=== PATIENT | female | born 1980 | race Hispanic/Latino ===

== ENCOUNTER → 2018-03-29 | Day surgery (SDC) | payer OTHER ==
[2018-03-27 12:13] LABS: BASOPHILS % 0.4 % (0.0-1.0); EOSINOPHILS # (AUTO) 0.1 (0.0-0.4); EOSINOPHILS % 1.4 % (0.0-6.0); HEMATOCRIT 33.1 % (34.2-44.1); HEMOGLOBIN 10.5 g/dL (12.0-16.0); LYMPHOCYTES % 21.8 % (18.0-39.1); MEAN CORPUSCULAR HEMOGLOBIN 25.9 pg (28-32); MEAN CORPUSCULAR HGB CONC 31.7 g/dL (31-35); MEAN CORPUSCULAR VOLUME 81.5 fL (81-99); MONOCYTES # (AUTO) 0.6 (0.2-0.8); MONOCYTES % 6.8 % (4.4-11.3); NEUTROPHILS # (AUTO) 6.4 (2.1-6.9); PLATELET COUNT 636 x10e3/uL (140-360); RED BLOOD COUNT 4.06 x10e6/uL (3.6-5.1); RED CELL DISTRIBUTION WIDTH 14.5 % (11.7-14.4)
[2018-03-27 12:48] LABS: ANION GAP 15.3 mmol/L (8-16); BLOOD UREA NITROGEN 9 mg/dL (7-26); BUN/CREATININE RATIO 12 (6-25); CALCIUM 9.8 mg/dL (8.4-10.2); CARBON DIOXIDE 24 mmol/L (22-29); CHLORIDE 99 mmol/L (98-107); CREATININE, SERUM 0.73 mg/dL (0.57-1.11); EST GLOMERULAR FILTRATION RATE > 60 ML/MIN (60-); GLUCOSE 89 mg/dL (74-118); POTASSIUM 4.3 mmol/L (3.5-5.1); SODIUM 134 mmol/L (136-145)
[~2018-03-29] MED LIST: ACETAMINOPHEN 1000 MG/100 ML IV ONE; ASPIR 8181 MG PO; BACTRIM DS TAB1 EACH PO; BIOTIN2500 MCG PO; BUPIVACAINE 0.25%/EPI 30ML SDV INJ ONE; CALCIUM 600 +1 EAC6 PO; CLINDAMYCIN PHOS 900MG/ D5W 50 50 ML IV ONE; DEXAMETHASONE SOD PHOS INJ 4 MG/ML VIAL ONE; DICYCLOMINE HCL20 MG PO; ESTROGENS CONJUGATED VAGINAL CR 45 GM TUBE PV ONE; FENTANYL CITRATE/PF 100MCG/2 ML INJ ONE; FOLIC ACID1 MG PO; HUMIRA40 MG/0.1 INJ; KETOROLAC TROMETHAMINE 30 MG/ML VIAL ONE; LEVOTHYROXINE25 MCG PO; LEVOTHYROXINE50 MCG PO; LIDOCAINE HCL 2% LOCAL INJ 5 ML SDV VIAL INJ ONE; MELOXICAM7.5 MG PO; METFORMIN HCL500 MG PO; MIDAZOLAM HCL 2 MG/2 ML VIAL ONE; NITROFURANTOIN100 MG PO; OMEPRAZOLE40 MG PO; ONDANSETRON HCL INJ 2 MG/ML VIAL ONE; PHENERGAN25 MG/1 ML PO; PROPOFOL IV EMULSION 10 MG/ML 20 ML VIAL ONE; SEVOFLURANE INHAL SOLN 250 ML PEN BTL ONE; TYLENOL # 31 EA PO; ULTRAM 50MG50 MG PO; VITAMIN D350000 UNIT PO
--- NOTE | 2018-03-29 09:30 | Operative Report ---
DATE OF PROCEDURE: PREOPERATIVE DIAGNOSIS: Rectocele. POSTOPERATIVE DIAGNOSES 1. Rectocele. 2. Enterocele. PROCEDURES 1. Rectocele repair. 2. Enterocele repair. COMPLICATIONS: None. ESTIMATED BLOOD LOSS: Minimal. DETAILS OF PROCEDURE: The patient was taken to the OR. Under general anesthesia, patient was prepped and draped in the normal sterile fashion. Patient was placed in the dorsal lithotomy position. Two Allis clamps were applied at the mucocutaneous junction about 0.5 cm from the fourchette on each side. Subvaginal tissue was injected with Marcaine with epinephrine 0.25%. Another Allis was applied at the maximum bulge of the rectocele. The mucocutaneous junction between the Allis clamp was cut using Ibrahim scissors and the vagina was dissected off the rectum using Metzenbaum scissors and opening the midline using the same. The 2 flaps of the vagina were dissected off the underlying tissues using both sharp and blunt dissection. Following this, an enterocele was noted and pouch of Volodymyr was opened. Bowel in the enterocele was pushed upwards. A pursestring suture was applied at the height of the cul-de-sac using Vicryl 2-0. The levator ani were approximated using Vicryl 0 sutures. Excess vaginal skin was trimmed off using curved Ibrahim scissors on both sides and the vagina was closed with continuous interlocking sutures of 2-0. Patient tolerated the procedure well. Lap and instrument counts were correct times 2 at the end of the procedure. Job#: [id number]
== END | disposition home or self-care (01) ==
LOC: OR 05:25
PROVIDERS: ATTEND Obstetrics & Gynecology
DX: N81.6 Rectocele (principal); N81.5 Vaginal enterocele; M32.9 Systemic lupus erythematosus, unspecified; F41.9 Anxiety disorder, unspecified; I10 Essential (primary) hypertension; K21.9 Gastro-esophageal reflux disease without esophagitis; E11.9 Type 2 diabetes mellitus without complications; E03.9 Hypothyroidism, unspecified; L40.9 Psoriasis, unspecified; K76.0 Fatty (change of) liver, not elsewhere classified; Z88.0 Allergy status to penicillin; Z01.810 Encounter for preprocedural cardiovascular examination; Z01.812 Encounter for preprocedural laboratory examination; Z68.31 Body mass index [BMI] 31.0-31.9, adult; Z79.82 Long term (current) use of aspirin; Z79.84 Long term (current) use of oral hypoglycemic drugs; Z87.891 Personal history of nicotine dependence
CPT/HCPCS: 36415 ×2; 57268; 80048; 82948; 84702; 85025; 93005; J1100; J1885; J2001; J2250; J2405

== ENCOUNTER → 2018-08-22 | Day surgery (SDC) | payer OTHER ==
[2018-08-17 13:58] LABS: BASOPHILS % 0.3 % (0.0-1.0); EOSINOPHILS # (AUTO) 0.1 (0.0-0.4); EOSINOPHILS % 0.6 % (0.0-6.0); HEMATOCRIT 33.1 % (34.2-44.1); HEMOGLOBIN 10.1 g/dL (12.0-16.0); LYMPHOCYTES # (AUTO) 3.2 (1.0-3.2); LYMPHOCYTES % 22.3 % (18.0-39.1); MEAN CORPUSCULAR HEMOGLOBIN 23.6 pg (28-32); MEAN CORPUSCULAR HGB CONC 30.5 g/dL (31-35); MEAN CORPUSCULAR VOLUME 77.3 fL (81-99); MONOCYTES # (AUTO) 1.1 (0.2-0.8); MONOCYTES % 7.6 % (4.4-11.3); NEUTROPHILS # (AUTO) 9.8 (2.1-6.9); NEUTROPHILS % 68.9 % (38.7-80.0); PLATELET COUNT 596 x10e3/uL (140-360); RED BLOOD COUNT 4.28 x10e6/uL (3.6-5.1); RED CELL DISTRIBUTION WIDTH 15.8 % (11.7-14.4)
[2018-08-17 14:14] LABS: ANION GAP 13.2 mmol/L (8-16); BLOOD UREA NITROGEN 7 mg/dL (7-26); BUN/CREATININE RATIO 9 (6-25); CALCIUM 9.9 mg/dL (8.4-10.2); CARBON DIOXIDE 25 mmol/L (22-29); CHLORIDE 99 mmol/L (98-107); CREATININE, SERUM 0.77 mg/dL (0.57-1.11); EST GLOMERULAR FILTRATION RATE > 60 ML/MIN (60-); GLUCOSE 75 mg/dL (74-118); POTASSIUM 4.2 mmol/L (3.5-5.1); SODIUM 133 mmol/L (136-145)
[~2018-08-22] MED LIST changes: -ACETAMINOPHEN 1000 MG/100 ML IV ONE; +ACETAMINOPHEN/CODEINE 300MG - 30MG TAB ONE; +B-12500 MCG; -BUPIVACAINE 0.25%/EPI 30ML SDV INJ ONE; +BUPIVACAINE 0.5%/EPI 30 ML SDV INJ ONE; -CLINDAMYCIN PHOS 900MG/ D5W 50 50 ML IV ONE; -ESTROGENS CONJUGATED VAGINAL CR 45 GM TUBE PV ONE; +FLUCONAZOLE100 MG PO; -KETOROLAC TROMETHAMINE 30 MG/ML VIAL ONE; +PREDNISONE5 G1; +ROCURONIUM BROMIDE 10 MG/ML 5ML VIAL ONE; +TREMFYA
--- OUTSIDE RECORDS SUMMARY | 2018-08-22 11:57 | XMS REPORT ---
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
--- OUTSIDE RECORDS SUMMARY | 2018-08-22 11:57 | XMS REPORT ---
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 Active Assessment ELLA positive R76.8 Active Assessment Long-term use of immunosuppressant medication Z79.899 Active Assessment Psoriatic arthritis L40.50 Active Problem Medication monitoring encounter Z51.81 Active Problem Long-term use of immunosuppressant medication Z79.899 Active Problem 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 Problem 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.79 Active Problem Psoriasis L40.9 Active Problem Increased liver enzymes R74.8 Active Problem Psoriatic arthritis L40.50 Active Medications Medication Code System Code Instructions Start Date End Date Status Dosage Aspirin [facility] 42498179869 81 MG Orally Once a day Active 1 tablet Meloxicam [facility] 17633599407 7.5 MG Orally bid with food December 02, 2016 Active 1 tablet Vitamin D (Ergocalciferol) [facility] 51633149443 82604 UNIT Orally q week Active 1 capsule Calcium + D [facility] 66188-10690 600-200 MG-UNIT Orally Once a day Active 1 tablet with food Biotin [facility] 89025869297 5000 MCG Orally Once a day Active 1 capsule Vitamin B12 [facility] 25995-42616 1000 mcg Orally Once a day Active 1 tablet Levothyroxine Sodium ND 64378010480 50 MCG Orally Once a day Active 1 tablet Metformin HCl ND 96824943654 500 MG Orally Twice a day Active 1 tablet with meals Omeprazole ND 98720568500 40 MG Orally Once a day Active 1 capsule Folic Acid [facility] 40379258599 1 MG Orally Once a day Active 1 tablet Tremfya [facility] 30339932271 100 MG/ML Subcutaneous once q 2 months Active 1 ml Vital Signs Date/Time: May 15, 2018 BMI 31.35 Index Weight 171.4 lbs Height 62 in Temperature 98.5 F Cardiac Monitoring Heart Rate 74 /min Blood Pressure Diastolic 78 mm Hg Blood Pressure Systolic 122 mm Hg Results No Known Results Summary Purpose [employer] Submission
--- OUTSIDE RECORDS SUMMARY | 2018-08-22 11:57 | XMS REPORT | Continuity of Care Document ---
Author Author [facility] Address Unknown Phone Unavailable Problems Problem Status Onset Date Classification Date Reported Comments Source Medication monitoring encounter Active Problem 06/08/2018 George Lau Psoriatic arthritis Active Diagnosis 06/08/2018 George Lau Long-term use of immunosuppressant medication Active Diagnosis 06/08/2018 George Lau Psoriasis Active Diagnosis 06/08/2018 George Lau Rheumatoid arthritis of multiple sites without organ or system involvement with positive rheumatoid factor Active Diagnosis 06/08/2018 George Lau Increased liver enzymes Active Problem 06/08/2018 George Lau Lipoma of torso Active Problem 06/08/2018 George Lau Screening for osteoporosis Active Diagnosis 08/16/2017 George Lau ELLA positive Active Diagnosis 06/08/2018 George Lau Medications Medication Details Route Status Patient Instructions Ordering Provider Order Date Source Vitamin D (Ergocalciferol) 1 capsule Orally Active 86668 UNIT Orally q week [place] 05/06/2018 George Lau Vitamin D (Ergocalciferol) 1 capsule Orally Active 07582 UNIT Orally q week [place] 01/29/2018 George Lau Tramadol HCl 1 tablet as needed Orally Active 50 MG Orally every 8 hrs [place] 10/30/2017 George Lau Remicade 3mg/kg (265.35mg) Intravenous Active 100 MG Intravenous at weeks 0, 2, 6 and then every 8 weeks [place] 09/28/2017 George Lau PredniSONE 1/2 tablet Orally Active 20 MG Orally Once a day [place] 09/12/2017 George Lau Vitamin D (Ergocalciferol) 1 capsule Orally Active 94359.0 Not Specified Orally once a week [place] 09/06/2017 George Lau Orencia 750 mg Intravenous Active 250 MG Intravenous at weeks 0, 2, 4 and then every 4 weeks [place] 08/11/2017 George Lau PredniSONE 2 tabs daily for 1 week then 1 tab daily for 1 week then stop Orally Active 5 MG Orally Once a day [place] 08/01/2017 George Lau Leflunomide 1 tablet Orally Active 10 MG Orally Once a day [place] 08/01/2017 George Lau Meloxicam 1 tablet Orally Active 7.5 MG Orally bid with food [facility] 12/02/2016 George Lau Meloxicam 1 tablet Orally Active 7.5 MG Orally bid with food [place] 12/02/2016 George Lau Vitamin D (Ergocalciferol) 1 capsule Orally Active 57910.0 Not Specified Orally once a week [place] George Lau Biotin 1 capsule Orally Active 5000 MCG Orally Once a day [facility] George Lau Levothyroxine Sodium 1 tablet Orally Active 50 MCG Orally Once a day [facility] George Lau Omeprazole 1 capsule Orally Active 40 MG Orally Once a day [facility] George Lau Humira Pen 0.8 Subcutaneous Active 40 MG/0.8ML Subcutaneous every other week [facility] George Lau Aspirin 1 tablet Orally Active 81 MG Orally Once a day [facility] George Lau Folic Acid 1 tablet Orally Active 1 MG Orally Once a day [place] George Lau Vitamin B12 1 tablet Orally Active 1000 mcg Orally Once a day [place] George Lau Tramadol HCl 1 tablet as needed Orally Active 50 MG Orally every 6 hrs [facility] George Lau Clobetasol Propionate 1 application to affected area Externally Active 0.05 % Externally Twice a day Lau George Lau Triamcinolone Acetonide 1 application to affected area Externally Active 0.1 % Externally Twice a day [facility] George Lau Hydrocortisone 1 application to affected area Rectal Active 2.5 % Rectal Twice a day [place] George Lau HydrOXYzine HCl 3 tablets as needed Orally Active 25 MG Orally q hs [place] George Lau Tramadol HCl TAKE 1 TABLET BY MOUTH EVERY 6 HOURS NA Active 50 [facility] George Lau Biotin 1 capsule Orally Active 5000 MCG Orally Once a day [place] George Lau Levothyroxine Sodium 1 tablet Orally Active 50 MCG Orally Once a day [facility] George Lau Metformin HCl 1 tablet with meals Orally Active 500 MG Orally Twice a day [facility] George Lau Calcium + D 1 tablet with food Orally Active 600-200 MG-UNIT Orally Once a day [place] George Lau Humira Pen 0.8 Subcutaneous Active 40 MG/0.8ML Subcutaneous every other week [place] George Lau Aspirin 1 tablet Orally Active 81 MG Orally Once a day [facility] Omeprazole 1 capsule Orally Active 40 MG Orally Once a day Lau George Lau Vitamin D (Ergocalciferol) 1 capsule Orally Active 98987 UNIT Orally q week Lau [facility] Tremfya 1 ml Subcutaneous Active 100 MG/ML Subcutaneous once q 2 months Lau George Lau Allergies, Adverse Reactions, Alerts Substance Category Reaction Severity Reaction type Status Date Reported Comments Source penicillin Adverse Reaction rash Adverse Reaction Active 05/15/2018 George Lau Immunizations Immunization Date Given Site Status Last Updated Comments Source Results Order Name Results Value Reference Range Date Interpretation Comments Source Vital Signs Vital Sign Value Date Comments Source Weight 171.4 05/15/2018 George Lau Height 62 05/15/2018 George Lau Temperature Oral (F) 98.5 F 05/15/2018 George Lau Heart Rate 74 05/15/2018 George Lau Diastolic (mm Hg) 78 05/15/2018 George Lau Systolic (mm Hg) 122 05/15/2018 George Lau Weight 187.8 02/15/2018 George Lau Height 62 02/15/2018 George Lau Temperature Oral (F) 97.7 F 02/15/2018 George Lau Heart Rate 76 02/15/2018 George Lau Diastolic (mm Hg) 70 02/15/2018 George Lau Systolic (mm Hg) 128 02/15/2018 George Lau Weight 182 11/07/2017 George Lau Height 62 11/07/2017 George Lau Temperature Oral (F) 97.7 F 11/07/2017 George Lau Heart Rate 76 11/07/2017 George Lau Diastolic (mm Hg) 70 11/07/2017 George Lau Systolic (mm Hg) 118 11/07/2017 George Lau Weight 193 04/27/2017 George Lau Height 62.2 04/27/2017 George Lau Temperature Oral (F) 97.7 F 04/27/2017 George Lau Heart Rate 80 04/27/2017 George Lau Diastolic (mm Hg) 64 04/27/2017 George Lau Systolic (mm Hg) 110 04/27/2017 George Lau Weight 197 02/02/2017 George Lau Height 63 02/02/2017 George Lau Temperature Oral (F) 97.3 F 02/02/2017 George Lau Heart Rate 80 02/02/2017 George Lau Diastolic (mm Hg) 80 02/02/2017 George Lau Systolic (mm Hg) 120 02/02/2017 George Lau Encounters Location Location Details Encounter Type Encounter Number Reason For Visit Attending Provider ADM Date DC Date Status Source Procedures Procedure Code Date Perfomer Comments Source
[2018-08-22 16:40] VITALS: BP 109/72
--- NOTE | 2018-08-23 18:01 | Operative Report ---
DATE OF PROCEDURE: PREOPERATIVE DIAGNOSIS: Adnexal mass. POSTOPERATIVE DIAGNOSIS: Adnexal mass. OPERATION PERFORMED: Laparoscopy. COMPLICATIONS: None. ESTIMATED BLOOD LOSS: Minimal. PROCEDURE: The patient was taken to the OR where general anesthesia was placed. She was prepped and draped in the normal sterile fashion and placed in the dorsal lithotomy position. A rubber catheter was used to empty the bladder. Following this, gloves were changed and 2 Allis clamps were applied to the umbilicus. An infraumbilical skin incision was made with a scalpel, and a 5-mm bladeless trocar and cannula with a scope inside were passed through the abdominal wound into the abdominal cavity under direct visualization. The trocar was removed, and the scope was slid through the sleeve. The abdomen was inflated with carbon dioxide gas. The patient was placed in Trendelenburg position. Another port was made in the right lower quadrant. After making a 5-mm skin incision with the scalpel, a 5-mm bladeless trocar and cannula were passed through the abdominal wall into the abdominal cavity under direct visualization. The trocar was removed, and a grasper was used. The following findings: Absent uterus. A large about 15 cm mass in the pelvis, firm with limited mobility, attached to the pelvic colon and rectum, and on the right side attached to the pelvic side wall. Mobility of the mass was limited. At that stage, decision was made to terminate the procedure and bring her back for laparotomy after bowel prep and bilateral stent placement to remove the mass. Patient's CA125 was normal before taking her to the OR. Will liaise with general surgeon and urology physicians and take her to the OR for laparotomy and excision of an adnexal mass in the future. Following this, instruments were removed from the abdomen. Abdomen was deflated. Patient tolerated the procedure well. Lap, instrument and needle count was correct x2 at the end of the procedure. Skin was approximated using Dermabond. Job#: [id number] EV
== END ==
LOC: OR 11:54
PROVIDERS: ATTEND Obstetrics & Gynecology
DX: N83.8 Other noninflammatory disorders of ovary, fallopian tube and broad ligament (principal); E11.9 Type 2 diabetes mellitus without complications; K76.0 Fatty (change of) liver, not elsewhere classified; Z88.0 Allergy status to penicillin; Z01.810 Encounter for preprocedural cardiovascular examination; Z01.812 Encounter for preprocedural laboratory examination; Z79.84 Long term (current) use of oral hypoglycemic drugs
CPT/HCPCS: 36415 ×2; 49320; 80048; 81025; 82948; 84702; 85025; 93005; J1100; J2001; J2250; J2405; J2704

== ENCOUNTER → 2018-11-12 | Outpatient (CLI) | payer OTHER ==
[~2018-11-12] MED LIST changes: -ACETAMINOPHEN/CODEINE 300MG - 30MG TAB ONE; -BUPIVACAINE 0.5%/EPI 30 ML SDV INJ ONE; -DEXAMETHASONE SOD PHOS INJ 4 MG/ML VIAL ONE; -FENTANYL CITRATE/PF 100MCG/2 ML INJ ONE; +IOPAMIDOL 370 MG/ML 200 ML INFUS..BTL INJ ONE; -LIDOCAINE HCL 2% LOCAL INJ 5 ML SDV VIAL INJ ONE; -MIDAZOLAM HCL 2 MG/2 ML VIAL ONE; -ONDANSETRON HCL INJ 2 MG/ML VIAL ONE; -PROPOFOL IV EMULSION 10 MG/ML 20 ML VIAL ONE; -ROCURONIUM BROMIDE 10 MG/ML 5ML VIAL ONE; -SEVOFLURANE INHAL SOLN 250 ML PEN BTL ONE; +SODIUM CHLORIDE 0.9% 250ML 250 ML ONE; +SODIUM CHLORIDE 0.9% 50ML 0 ML ONE
[2018-11-12 12:55] LABS: BLOOD UREA NITROGEN 8 mg/dL (7-26); BUN/CREATININE RATIO 12 (6-25); CREATININE, SERUM 0.69 mg/dL (0.57-1.11); EST GLOMERULAR FILTRATION RATE > 60 ML/MIN (60-)
--- NOTE | 2018-11-12 16:38 | Diagnostic Imaging Report ---
EXAM: CT abdomen and pelvis without and with contrast - Hematuria protocol INDICATION: Microscopic hematuria, history of cyst attached to bowel. COMPARISON: None. TECHNIQUE: Abdomen and pelvis were scanned in prone position without and with contrast. Delayed phase imaging obtained. Coronal and sagittal reformations were obtained. Hematuria protocol was performed. IV CONTRAST: 150 mL of Isovue 370 RADIATION DOSE: Total DLP: 921.5 mGy*cm COMPLICATIONS: None FINDINGS: LINES and TUBES: None. LOWER THORAX: Patchy dependent atelectasis in the middle lobe and lingula. HEPATOBILIARY: No focal hepatic lesions. No biliary ductal dilation. GALLBLADDER: Status post cholecystectomy. SPLEEN: No splenomegaly. PANCREAS: No focal masses or ductal dilatation. ADRENALS: No adrenal nodules KIDNEYS/URETERS: Kidneys enhance symmetrically. No hydronephrosis. No evidence of solid mass. There is a 1.3 cm cyst within the left mid pole kidney. The majority of the ureters are opacified and demonstrate no specific evidence of urothelial lesion. The distal right ureter is nonopacified. GI TRACT: No evidence of bowel obstruction. The appendix is unremarkable. There is sigmoid diverticulosis without evidence of acute diverticulitis. There is mild, likely reactive thickening of the sigmoid colon adjacent to the pelvic process identified below. PELVIS: Within the left pelvis, there is a multiloculated, complex, peripherally enhancing cystic lesion. The largest cystic component measures up to 7.1 cm. The lesion exhibits mass effect on the bladder. There are mild surrounding inflammatory changes. Abutting this lesion along the superior and right aspect, there are 2 large locules of air, measuring up to 6.5 cm in aggregate with surrounding peripheral thickening and inflammatory changes. Multiple small bowel loops are seen adjacent to but not definitively involving the lesion. The bladder is opacified on delayed images and demonstrates no evidence of urothelial lesion. Status post hysterectomy. LYMPH NODES: No lymphadenopathy. VESSELS: Retroaortic left renal vein. PERITONEUM / RETROPERITONEUM: No free air or fluid. BONES AND SOFT TISSUES: No acute bony findings or suspicious lytic or blastic lesions. IMPRESSION: Indeterminant multiloculated, complex, peripherally enhancing cystic lesion centered within the left pelvis with extrinsic mass effect on the bladder. The differential includes ovarian neoplasm and pelvic abscess, possibly tubo-ovarian abscess. Abutting this lesion along the superior and right aspect, there are two large locules of air with surrounding inflammatory changes and wall thickening, and closely abutting the sigmoid colon which appears reactively thickened. It is unclear if this process reflects an additional mass lesion or is part of the same process in the left adnexa. The air suggests presence of fistula to the bowel. Differential includes sequela of remote diverticulitis (given the presence of sigmoid diverticulosis) with multiloculated abscess and fistula to the bowel. No evidence of solid renal mass, stone, or urothelial lesion. Signed by: Dr. Valery Caballero MD on 11/12/2018 4:35 PM
== END ==
LOC: CT 11:52
PROVIDERS: ATTEND Urology
DX: R31.21 Asymptomatic microscopic hematuria (principal)
CPT/HCPCS: 36415; 74178; 82565; 84520; J7050; Q9967

== ENCOUNTER 2019-02-12 05:44 | Inpatient (IN) | payer OTHER ==
[2019-02-04 17:18] LABS: BASOPHILS % 0.5 % (0.0-1.0); EOSINOPHILS # (AUTO) 0.1 (0.0-0.4); EOSINOPHILS % 1.1 % (0.0-6.0); HEMATOCRIT 38.2 % (34.2-44.1); HEMOGLOBIN 11.6 g/dL (12.0-16.0); LYMPHOCYTES # (AUTO) 1.6 (1.0-3.2); LYMPHOCYTES % 20.3 % (18.0-39.1); MEAN CORPUSCULAR HEMOGLOBIN 23.9 pg (28-32); MEAN CORPUSCULAR HGB CONC 30.4 g/dL (31-35); MEAN CORPUSCULAR VOLUME 78.6 fL (81-99); MONOCYTES # (AUTO) 0.8 (0.2-0.8); MONOCYTES % 9.7 % (4.4-11.3); NEUTROPHILS # (AUTO) 5.5 (2.1-6.9); NEUTROPHILS % 68.2 % (38.7-80.0); PLATELET COUNT 432 x10e3/uL (140-360); RED BLOOD COUNT 4.86 x10e6/uL (3.6-5.1); RED CELL DISTRIBUTION WIDTH 16.6 % (11.7-14.4)
[2019-02-04 17:43] LABS: ALANINE AMINOTRANSFERASE 17 IU/L (0-55); ALBUMIN 3.6 g/dL (3.5-5.0); ALBUMIN/GLOBULIN RATIO 0.8 (0.8-2.0); ALKALINE PHOSPHATASE 141 IU/L (40-150); BLOOD UREA NITROGEN 9 mg/dL (7-26); BUN/CREATININE RATIO 12 (6-25); CALCIUM 9.7 mg/dL (8.4-10.2); CARBON DIOXIDE 23 mmol/L (22-29); CHLORIDE 104 mmol/L (98-107); CREATININE, SERUM 0.78 mg/dL (0.57-1.11); EST GLOMERULAR FILTRATION RATE > 60 ML/MIN (60-); GLUCOSE 91 mg/dL (74-118); SODIUM 137 mmol/L (136-145)
[~2019-02-12] VITALS: Ht 162.6 cm; Wt 83.0 kg
[~2019-02-12 05:44] MED LIST changes: -IOPAMIDOL 370 MG/ML 200 ML INFUS..BTL INJ ONE; +OTEZLA PO; -SODIUM CHLORIDE 0.9% 250ML 250 ML ONE; -SODIUM CHLORIDE 0.9% 50ML 0 ML ONE
--- OUTSIDE RECORDS SUMMARY | 2019-02-12 06:02 | XMS REPORT ---
Author Author Yonathan Lau Organization [employer] Address Unknown Phone Unavailable Care Team Providers Care Straightener Hand Name Role Phone Yonathan Lau CP Unavailable [...]
--- OUTSIDE RECORDS SUMMARY | 2019-02-12 06:02 | XMS REPORT | Continuity of Care Document ---
Author Author [facility] Address Unknown Phone Unavailable Care Team Providers Care Blind Hanger Name Role Phone [employer] Information [facility] Unavailable Unavailable Problems Problem Status Onset Date Classification Date Reported Comments Source Medication monitoring encounter Active Problem 02/10/2019 George Lau Psoriatic arthritis Active Problem 02/10/2019 George Lau Long-term use of immunosuppressant medication Active Problem 02/10/2019 George Lau Psoriasis Active Problem 02/10/2019 George Lau Rheumatoid arthritis of multiple sites without organ or system involvement with positive rheumatoid factor Active Problem 02/10/2019 George Lau Increased liver enzymes Active Problem 02/10/2019 George Lau Screening for osteoporosis Active Diagnosis 08/16/2017 George Lau Lipoma of torso Active Problem 02/10/2019 George Lau ELLA positive Active Diagnosis 06/08/2018 George Lau Medications Medication Details Route Status Patient Instructions Ordering Provider Order Date Source Vitamin D (Ergocalciferol) 1 capsule Orally Active 21304 UNIT Orally q week Lau 05/05/2019 George Lau Tramadol HCl 1 tablet as needed Orally Active 50 MG Orally every 6 hrs Lau 03/06/2019 George Lau PredniSONE 2 tablets Orally Active 5 MG Orally q am with food Lau 08/16/2018 George Lau Vitamin D (Ergocalciferol) 1 capsule Orally Active 16431 UNIT Orally q week Lau 05/06/2018 George Lau Vitamin D (Ergocalciferol) 1 capsule Orally Active 47230 UNIT Orally q week Lau 01/29/2018 George Lau Tramadol HCl 1 tablet as needed Orally Active 50 MG Orally every 8 hrs Lau 10/30/2017 George Lau Remicade 3mg/kg (265.35mg) Intravenous Active 100 MG Intravenous at weeks 0, 2, 6 and then every 8 weeks Lau 09/28/2017 George Lau PredniSONE 1/2 tablet Orally Active 20 MG Orally Once a day Lau 09/12/2017 George Lau Vitamin D (Ergocalciferol) 1 capsule Orally Active 76243.0 Not Specified Orally once a week [place] 09/06/2017 George Lau Orencia 750 mg Intravenous Active 250 MG Intravenous at weeks 0, 2, 4 and then every 4 weeks [place] 08/11/2017 George Lau PredniSONE 2 tabs daily for 1 week then 1 tab daily for 1 week then stop Orally Active 5 MG Orally Once a day [place] 08/01/2017 George Lau Leflunomide 1 tablet Orally Active 10 MG Orally Once a day [place] 08/01/2017 George Lau Meloxicam 1 tablet Orally Active 7.5 MG Orally bid with food [facility] 12/02/2016 George Lau Meloxicam 1 tablet Orally Active 7.5 MG Orally bid with food [place] 12/02/2016 George Lau Vitamin D (Ergocalciferol) 1 capsule Orally Active 81085.0 Not Specified Orally once a week [place] George Lau Biotin 1 capsule Orally Active 5000 MCG Orally Once a day [facility] George Lau Levothyroxine Sodium 1 tablet Orally Active 50 MCG Orally Once a day [facility] George Lau Omeprazole 1 capsule Orally Active 40 MG Orally Once a day [facility] George Lau Humira Pen 0.8 Subcutaneous Active 40 MG/0.8ML Subcutaneous every other week [facility] George Lau Aspirin 1 tablet Orally Active 81 MG Orally Once a day [facility] George Lau Folic Acid 1 tablet Orally Active 1 MG Orally Once a day [place] George Lau Vitamin B12 1 tablet Orally Active 1000 mcg Orally Once a day [place] George Lau Tramadol HCl 1 tablet as needed Orally Active 50 MG Orally every 6 hrs [facility] George Lau Levothyroxine Sodium 1 tablet Orally Active 50 MCG Orally Once a day [place] George Lau Aspirin 1 tablet Orally Active 81 MG Orally Once a day [place] George Lau Biotin 1 capsule Orally Active 5000 MCG Orally Once a day [place] George Lau Humira Pen 0.8 Subcutaneous Active 40 MG/0.8ML Subcutaneous every other week [place] George Lau Omeprazole 1 capsule Orally Active 40 MG Orally Once a day [place] George Lau Metformin HCl 1 tablet with meals Orally Active 500 MG Orally Twice a day [place] George Lau Clobetasol Propionate 1 application to affected area Externally Active 0.05 % Externally Twice a day [place] George Pedersener Triamcinolone Acetonide 1 application to affected area Externally Active 0.1 % Externally Twice a day [place] George Pedersener Hydrocortisone 1 application to affected area Rectal Active 2.5 % Rectal Twice a day [place] George Pedersener HydrOXYzine HCl 3 tablets as needed Orally Active 25 MG Orally q hs [place] George Lau Tramadol HCl TAKE 1 TABLET BY MOUTH EVERY 6 HOURS NA Active 50 [place] George Pedersener Vitamin D (Ergocalciferol) 1 capsule Orally Active 30546 UNIT Orally q week [place] George Lau Calcium + D 1 tablet with food Orally Active 600-200 MG-UNIT Orally Once a day [place] George Pedersener Tremfya 1 ml Subcutaneous Active 100 MG/ML Subcutaneous once q 2 months [place] George Pedersener Allergies, Adverse Reactions, Alerts Substance Category Reaction Severity Reaction type Status Date Reported Comments Source penicillin Adverse Reaction rash Adverse Reaction Active 11/06/2018 George Lau Immunizations No Data Provided for This Section Results No Data Provided for This Section Pathology Reports No Data Provided for This Section Diagnostic Reports No Data Provided for This Section Consultation Notes No Data Provided for This Section Discharge Summaries No Data Provided for This Section History and Physicals No Data Provided for This Section Vital Signs Vital Sign Value Date Comments Source Weight 169.7 11/06/2018 George Pedersener Height 63 11/06/2018 George Lau Temperature Oral (F) 98.2 F 11/06/2018 George Lau Heart Rate 68 11/06/2018 George Lau Diastolic (mm Hg) 66 11/06/2018 George Lau Systolic (mm Hg) 130 11/06/2018 George Lau Weight 174.7 08/16/2018 George Lau Height 63 08/16/2018 George Lau Temperature Oral (F) 99.1 F 08/16/2018 George Lau Heart Rate 72 08/16/2018 George Lau Diastolic (mm Hg) 64 08/16/2018 George Lau Systolic (mm Hg) 118 08/16/2018 George Pedersener Weight 171.4 05/15/2018 George Lau Height 62 [...] (mm Hg) 120 02/02/2017 George Lau Encounters No Data Provided for This Section Procedures No Data Provided for This Section Assessment and Plan No Data Provided for This Section Plan of Care No Data Provided for This Section Social History No Data Provided for This Section Family History No Data Provided for This Section Advance Directives No Data Provided for This Section Functional Status No Data Provided for This Section
--- OUTSIDE RECORDS SUMMARY | 2019-02-12 06:02 | XMS REPORT ---
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.79 Active Assessment Psoriatic arthritis L40.50 Active Assessment Long-term use of immunosuppressant medication Z79.899 Active Assessment Psoriasis L40.9 Active Problem Medication monitoring encounter Z51.81 Active [...] Instructions Start Date End Date Status Dosage Biotin [facility] 19186587168 5000 MCG Orally Once a day Active 1 capsule Aspirin [facility] 67612209924 81 MG Orally Once a day Active 1 tablet Omeprazole ND 17243663030 40 MG Orally Once a day Active 1 capsule Vitamin B12 [facility] 57607-72739 1000 mcg Orally Once a day Active 1 tablet Folic Acid [facility] 72377123335 1 MG Orally Once a day Active 1 tablet PredniSONE ND 37248468760 5 MG Orally q am with food Aug 16, 2018 Active 2 tablets Levothyroxine Sodium ND 70266304317 50 MCG Orally Once a day Active 1 tablet Calcium + D [facility] 24667-31178 600-200 MG-UNIT Orally Once a day Active 1 tablet with food Metformin HCl ND 41124056375 500 MG Orally Twice a day Active 1 tablet with meals Tremfya [facility] 14222927955 100 MG/ML Subcutaneous once q 2 months Active 1 ml Meloxicam [facility] 60243933879 7.5 MG Orally bid with food December 02, 2016 Active 1 tablet Vitamin D (Ergocalciferol) [facility] 37059569552 69715 UNIT Orally q week Active 1 capsule Vital Signs Date/Time: Aug 16, 2018 BMI 30.94 Index Weight 174.7 lbs Height 63 in Temperature 99.1 F Cardiac Monitoring Heart Rate 72 /min Blood Pressure Diastolic 64 mm Hg Blood Pressure Systolic 118 mm Hg Results Name Result Date Reference Range Unit Abnormality Flag CBC W/AUTO DIFF ----MONOCYTES 6.7 48321929 4.0-13.0 % ----LYMPHOCYTES 20.8 32292699 19.0-48.0 % ----HEMOGLOBIN 10.2 73023299 11.5-15.5 G/DL L ----HEMATOCRIT 31.8 50970200 34.0-45.0 % L ----MCV 74.0 38553353 80.0-100.0 fL L ----MCH 23.7 95535424 27.0-34.0 PG L ----MCHC 32.1 77404868 32.0-35.5 G/DL ----PLATELET COUNT 648 63986196 130-400 K/UL H ----RDW 14.9 40626782 11.0-15.0 % ----WBC 11.1 90577973 4.0-11.0 K/UL H ----NEUTROPHILS 71.1 19517251 40.0-74.0 % ----BASOPHILS 0.4 64630659 0.0-2.0 % ----RBC 4.30 04005915 3.80-5.10 M/UL ----EOSINOPHILS 1.0 47344582 0.0-7.0 % C-REACTIVE PROTEIN ----C-REACTIVE PROTEIN 10.4 59233438 <0.5 MG/DL H COMPREHENSIVE METABOLIC PANEL ----CALC A/G RATIO 0.8 42835495 1.0-2.6 RATIO L ----CALC GLOBULIN 4.5 46355639 1.9-3.7 G/DL H ----ALKALINE PHOSPHATASE 132 50477712 40-112 U/L H ----BILIRUBIN, TOTAL 0.5 38508456 <=1.2 MG/DL ----CHLORIDE 97 70765095 95-107 MEQ/L ----ALT 15 20180816 5-40 U/L ----POTASSIUM 5.0 20180816 3.5-5.4 MEQ/L ----AST 18 20180816 9-40 U/L ----SODIUM 134 20180816 133-146 MEQ/L ----CALC BUN/CREAT 11 20180816 6-28 RATIO ---- eGFR NON- AMER. 104 20180816 >60 ML/MIN/1.73 ----CALCIUM 9.4 20180816 8.5-10.5 MG/DL ----CARBON DIOXIDE 26 20180816 19-31 MEQ/L ----ALBUMIN 3.8 20180816 3.5-5.2 G/DL ----PROTEIN, TOTAL 8.3 20180816 6.1-8.3 G/DL ----GLUCOSE 79 20180816 70-99 MG/DL ----BUN 8 20180816 6-20 MG/DL ----CREATININE 0.73 20180816 0.60-1.30 MG/DL ---- eGFR AMER. 120 20180816 >60 ML/MIN/1.73 SEDIMENTATION RATE ----SEDIMENTATION RATE 136 20180816 0-20 MM/HOUR H Summary Purpose eClinicalWorks Submission
--- OUTSIDE RECORDS SUMMARY | 2019-02-12 06:02 | XMS REPORT ---
Author Author Yonathan Lau Organization eClinicalWorks Address Unknown Phone Unavailable Care Team Providers Care Supervisor Drawing Name Role Phone Yonathan Lau CP Unavailable [...]
--- OUTSIDE RECORDS SUMMARY | 2019-02-12 06:03 | XMS REPORT ---
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.79 Active Problem Medication monitoring encounter Z51.81 Active [...] Instructions Start Date End Date Status Dosage PredniSONE ND 63875691368 5 MG Orally q am with food Aug 16, 2018 January 05, 2019 Active 2 tablets Aspirin ND 59745509796 81 MG Orally Once a day Active 1 tablet Omeprazole ND 53848239705 40 MG Orally Once a day Active 1 capsule Vitamin B12 [facility] 37711-15144 1000 mcg Orally Once a day Active 1 tablet Vitamin D (Ergocalciferol) [facility] 67772846335 63887 UNIT Orally q week May 05, 2019 Active 1 capsule Levothyroxine Sodium ND 74822523527 50 MCG Orally Once a day Active 1 tablet Biotin ND 36091159066 5000 MCG Orally Once a day Active 1 capsule Calcium + D [facility] 44635-45919 600-200 MG-UNIT Orally Once a day Active 1 tablet with food Metformin HCl ND 99845223066 500 MG Orally Twice a day Active 1 tablet with meals Tremfya ND 87044141271 100 MG/ML Subcutaneous once q 2 months Active 1 ml Tramadol HCl ND 31961769964 50 MG Orally every 6 hrs March 06, 2019 Active 1 tablet as needed Folic Acid [facility] 13454173873 1 MG Orally Once a day Active 1 tablet Meloxicam [facility] 23181126057 7.5 MG Orally bid with food December 02, 2016 Active 1 tablet Vital Signs Date/Time: November 06, 2018 BMI 30.06 Index Weight 169.7 lbs Height 63 in Temperature 98.2 F Cardiac Monitoring Heart Rate 68 /min Blood Pressure Diastolic 66 mm Hg Blood Pressure Systolic 130 mm Hg Results Name Result Date Reference Range Unit Abnormality Flag Skeletal Muscle Relaxants Sedatives Opiates/Opioids Illicits PROVIDED MEDICATIONS ----PROVIDED MEDICATIONS N/A [id number] ANTIDEPRESSANTS Amphetamines Benzodiazepines 1099 SPECIMEN VALIDITY TESTING Barbiturates Summary Purpose eClinicalWorks Submission
--- OUTSIDE RECORDS SUMMARY | 2019-02-12 06:03 | XMS REPORT ---
Author Author [facility] Address Unknown Phone Unavailable Care Team Providers Care Nitric Acid Concentrator Operator Name Role Phone JOY CROFT Unavailable Unavailable Problems This patient has no known problems. Allergies, Adverse Reactions, Alerts This patient has no known allergies or adverse reactions. Medications This patient has no known medications. Results Test Description Test Time Test Comments Text Results Atomic Results Result Comments CT ABDOMEN/PELVIS WOW 2018-11-12 16:08:00 [place] [address] Patient Name: WILLIE CLIFFORD MR #: [id number] : 1980 Age/Sex: 38/F Req #: [id number] Adm Physician: Ordered by: JOY CROFT MD Report #: [id number] Location: CT Room/Bed: Procedure: [id number] CT/CT ABDOMEN/PELVIS WOW Exam Date: 11/12/18 Exam Time: 1300 REPORT STATUS: Signed EXAM: CT abdomen and pelvis without and with contrast - Hematuria protocol INDICATION: Microscopic hematuria, history of cyst attached to bowel. COMPARISON: None. TECHNIQUE: Abdomen and pelvis were scanned in prone position without and with contrast. Delayed phase imaging obtained. Coronal and sagittal reformations were obtained. Hematuria protocol was performed. IV CONTRAST: 150 mL of Isovue 370 RADIATION DOSE: Total DLP: 921.5 mGy*cm COMPLICATIONS: None FINDINGS: LINES and TUBES: None. LOWER THORAX: Patchy dependent atelectasis in the middle lobe and lingula. HEPATOBILIARY: No focal hepatic lesions. No biliary ductal dilation. GALLBLADDER: Status post cholecystectomy. SPLEEN: No splenomegaly. PANCREAS: No focal masses or ductal dilatation. ADRENALS: No adrenal nodules KIDNEYS/URETERS: Kidneys enhance symmetrically. No hydronephrosis. No evidence of solid mass. There is a 1.3 cm cyst within the left mid pole kidney. The ma jority of the ureters are opacified and demonstrate no specific evidence of urothelial lesion. The distal right ureter is nonopacified. GI TRACT: No evidence of bowel obstruction. The appendix is unremarkable. There is sigmoid diverticulosis without evidence of acute diverticulitis. There is mild, likely reactive thickening of the sigmoid colon adjacent to the pelvic process identified below. PELVIS: Within the left pelvis, there is a multiloculated, complex, peripherally enhancing cystic lesion. The largest cystic component measures up to 7.1 cm. The lesion exhibits mass effect on the bladder. There are mild surrounding inflammatory changes. Abutting this lesion along the superior and right aspect, there are 2 large locules of air, measuring up to 6.5 cm in aggregate with surrounding peripheral thickening and inflammatory changes. Multiple small bowel loops are seen adjacent to but not definitively involving the lesion. The bladder is opacified on delayed i mages and demonstrates no evidence of urothelial lesion. Status post hysterectomy. LYMPH NODES: No lymphadenopathy. VESSELS: Retroaortic left renal vein. PERITONEUM / RETROPERITONEUM: No free air or fluid. BONES AND SOFT TISSUES: No acute bony findings or suspicious lytic or blastic lesions. IMPRESSION: Indeterminant multiloculated, complex, peripherally enhancing cystic lesion centered within the left pelvis with extrinsic mass effect on the bladder. The differential includes ovarian neoplasm and pelvic abscess, possibly tubo-ovarian abscess. Abutting this lesi on along the superior and right aspect, there are two large locules of air with surrounding inflammatory changes and wall thickening, and closely abutting the sigmoid colon which appears reactively thickened. It is unclear if this process reflects an additional mass lesion or is part of the same process in the left adnexa. The air suggests presence of fistula to the bowel. Differential includes sequela of remote diverticulitis (given the presence of sigmoid diverticulosis) with multiloculated abscess and fistula to the bowel. No evidence of solid renal mass, stone, or urothelial lesion. Signed by: Dr. Micheal Louie MD on 11/12/2018 4:35 PM Dictated By: MICHEAL LOUIE MD [id number] Transcribed By: MICHAEL on 11/12/18 7135 COPY TO: JOY CROFT MD
--- NOTE | 2019-02-12 07:05 | NUR ---
SPIRITUAL CARE - Pre-Surgery Assessment: Pt in bed. Pt reported supportive attention from family and friends. Intervention: I provided pastoral presence, hospitality, and sympathetic listening. I acquainted pt with availability of associate chemist while hospitalized. Outcome: Pt expressed appreciation for visit. No need for follow up indicated at this time. [place] [facility] Spiritual Care Department O: [phone] Pager: [phone] ([phone] number calling from)
[2019-02-12] MEDS ORDERED: CLINDAMYCIN PHOS 900MG/ 50ML 50 ML IV ONE (07:13)
[2019-02-12] MEDS ORDERED: IOPAMIDOL 610MG/1ML 300 MG/ML VIAL IV ONE (07:48)
[2019-02-12] MEDS: LACTATED RINGER'S 1,000 ML IV SCH ×3 (07:54→23:54)
[2019-02-12] MEDS ORDERED: KETOROLAC TROMETHAMINE 30 MG/ML VIAL IM PRN (08:00)
[2019-02-12] MEDS ORDERED: ESTRADIOL 0.1MG PATCH (ONCE WEEKLY) TOP SCH ×3 (08:00→12:15)
[2019-02-12] MEDS ORDERED: LEVOFLOXACIN 500MG/D5W 100ML 100 ML IV SCH (08:00)
[2019-02-12] MEDS ORDERED: ZOLPIDEM TARTRATE 5 MG TAB PO PRN (08:00)
[2019-02-12] MEDS ORDERED: DIPHENHYDRAMINE HCL 25 MG CAP PO PRN (08:00)
[2019-02-12] MEDS ORDERED: BISACODYL 10 MG SUPP PR PRN (08:00)
[2019-02-12] MEDS ORDERED: DEXTROSE 50% SYRINGE 50 ML IV PRN (08:00)
[2019-02-12] MEDS ORDERED: METRONIDAZOLE 500MG/NS 100ML 100 ML IV ONE (08:37)
[2019-02-12] MEDS ORDERED: BUPIVACAINE 0.25% 30ML SDV INJ ONE (09:06)
[2019-02-12] MEDS ORDERED: BUPIVACAINE LIPOSOME/PF 266 MG/20 ML IJ ONE (09:06)
[2019-02-12] MEDS ORDERED: SODIUM CHLORIDE 0.9% 50ML 50 ML ONE (09:15)
[2019-02-12] MEDS: METRONIDAZOLE 500MG/NS 100ML 100 ML IV SCH ×2 (09:30→21:22)
--- OUTSIDE RECORDS SUMMARY | 2019-02-12 09:45 | XMS REPORT | Continuity of Care Document ---
Author Author [facility] Address Unknown Phone Unavailable Care Team Providers Care Ingredient Specialist Name Role Phone [employer] Unavailable Unavailable Problems Problem Status Onset Date [...] Vitamin D (Ergocalciferol) 1 capsule Orally Active 73128 UNIT Orally q week Lau 05/05/2019 George Lau Tramadol HCl 1 tablet as needed Orally Active 50 MG Orally every 6 hrs Lau 03/06/2019 George Lau PredniSONE 2 tablets Orally Active 5 MG Orally q am with food Lau 08/16/2018 George Lau Vitamin D (Ergocalciferol) 1 capsule Orally Active 51045 UNIT Orally q week Lau 05/06/2018 George Lau Vitamin D (Ergocalciferol) 1 capsule Orally Active 11855 UNIT Orally q week Lau 01/29/2018 George [...] Vitamin D (Ergocalciferol) 1 capsule Orally Active 87993.0 Not Specified Orally once a week Manson 09/06/2017 George Lau Orencia 750 mg Intravenous Active 250 MG Intravenous at weeks 0, 2, 4 and then every 4 weeks [facility] 08/11/2017 George Lau PredniSONE 2 tabs daily for 1 week then 1 tab daily for 1 week then stop Orally Active 5 MG Orally Once a day [facility] 08/01/2017 George Lau Leflunomide 1 tablet Orally Active 10 MG Orally Once a day [facility] 08/01/2017 George Lau Meloxicam 1 tablet Orally Active 7.5 MG Orally bid with food [facility] 12/02/2016 George Lau Meloxicam 1 tablet Orally Active 7.5 MG Orally bid with food [facility] 12/02/2016 George Lau Vitamin D (Ergocalciferol) 1 capsule Orally Active 24696.0 Not Specified Orally once a week [place] George Lau Biotin 1 capsule Orally Active 5000 MCG Orally Once a day [facility] George Lau Levothyroxine Sodium 1 tablet Orally Active 50 MCG Orally Once a day [facility] George Lau Omeprazole 1 capsule Orally Active 40 MG Orally Once a day [facility] George Lau Humira Pen 0.8 Subcutaneous Active 40 MG/0.8ML Subcutaneous every other week [facility] George Lau Aspirin 1 tablet Orally Active 81 MG Orally Once a day [facility] George Lau Folic Acid 1 tablet Orally Active 1 MG Orally Once a day [facility] George Lau Vitamin B12 1 tablet Orally Active 1000 mcg Orally Once a day [facility] George Lau Tramadol HCl 1 tablet as needed Orally Active 50 MG Orally every 6 hrs [facility] George Lau Levothyroxine Sodium 1 tablet Orally Active 50 MCG Orally Once a day [place] George Lau Aspirin 1 tablet Orally Active 81 MG Orally Once a day [facility] George Lau Biotin 1 capsule Orally Active 5000 MCG Orally Once a day [facility] George Lau Humira Pen 0.8 Subcutaneous Active 40 MG/0.8ML Subcutaneous every other week [place] George Lau Omeprazole 1 capsule Orally Active 40 MG Orally Once a day [facility] George Lau Metformin HCl 1 tablet with meals Orally Active 500 MG Orally Twice a day [facility] George Lau Clobetasol Propionate 1 application to affected area Externally Active 0.05 % Externally Twice a day [facility] George Pedersener Triamcinolone Acetonide 1 application to affected area Externally Active 0.1 % Externally Twice a day [facility] George Pedersener Hydrocortisone 1 application to affected area Rectal Active 2.5 % Rectal Twice a day [facility] George Pedersener HydrOXYzine HCl 3 tablets as needed Orally Active 25 MG Orally q hs [facility] George Lau Tramadol HCl TAKE 1 TABLET BY MOUTH EVERY 6 HOURS NA Active 50 [place] George Pedersener Vitamin D (Ergocalciferol) 1 capsule Orally Active 48108 UNIT Orally q week [facility] George Lau Calcium + D 1 tablet with food Orally Active 600-200 MG-UNIT Orally Once a day [facility] eGorge Pedersener Tremfya 1 ml Subcutaneous Active 100 MG/ML Subcutaneous once q 2 months [facility] George Pedersener Allergies, Adverse Reactions, Alerts Substance [...]
--- NOTE | 2019-02-12 10:38 | Operative Report ---
DATE OF PROCEDURE: 02/12/2019 SURGEON: Edwin Wallis MD PREOPERATIVE DIAGNOSIS: Pelvic mass with pelvic adhesions. POSTOPERATIVE DIAGNOSIS: Pelvic mass with pelvic adhesions. PROCEDURE: Lysis of pelvic adhesions. CLINICAL REHAB LIAISON: Dr. Cervantes. ANESTHESIA: General endotracheal. INDICATIONS AND FINDINGS: The patient is a 38-year-old female, found to have a large pelvic mass. At surgery, there were dense adhesions of the small bowel and sigmoid colon to the mass as well as the bladder, which required lysing of the adhesions. TECHNIQUE: After adequate general endotracheal anesthesia with the patient in supine position, the patient first had cystoscopy with placement of ureteral stents by Urology. The abdomen was then prepped and draped in sterile fashion with ChloraPrep solution. A midline incision made and the peritoneal cavity was entered. There was a large mass in the pelvis. Evaluation revealed that the sigmoid colon and small bowel were adherent to the mass. These adhesions were lysed and care was taken not to injure the bowel. A large area of the colon was adherent to the mass with fairly dense adhesions and these were lysed using sharp dissection. Small bowel adhesions also were lysed using sharp dissection. During this dissection, there was found to be an abscess with adhesions and this abscess was drained. Once the bowel was free, it was all examined. Colon all appeared intact with no injury, small bowel also was intact. The mass was then partially removed by Dr. Cervantes, details are covered in his note and there was found to be additional adhesions of the mass to the posterior bladder and these adhesions also were lysed, care was taken not to injure the bladder. Once these adhesions were lysed, the mass was removed. There was some oozing from the area where adhesions of the bladder had been and these areas were oversewn with [id number] sutures of 3-0 Vicryl. Hemostasis was achieved. The pelvis was irrigated with saline, inspected for hemostasis, which was seen to be adequate. At this point, the abdomen was closed, the details of which are covered in Dr. Cervantes's note. The patient tolerated the portion the procedure well. Estimated blood loss was 30 mL. There were no complications. All counts were correct. MD JAD oPnce/TERRANCE /[id number]
[2019-02-12] MEDS ORDERED: MORPHINE SULFATE INJ 4 MG/ML INJ 1ML ONE (10:46)
--- NOTE | 2019-02-12 11:13 | Operative Report ---
DATE OF PROCEDURE: 02/12/2019 SURGEON: Chelly Cervantes MD PREOPERATIVE DIAGNOSIS: Adnexal mass. POSTOPERATIVE DIAGNOSIS: Adnexal mass. PROCEDURE: Laparotomy, excision of bilateral adnexal mass. CONSTRUCTION ACCOUNTANT: Dr. Wallis. COMPLICATIONS: None. ESTIMATED BLOOD LOSS: 100 mL. PROCEDURE IN DETAIL: The patient was taken to the OR. General anesthesia was induced. She was prepped and draped in normal sterile fashion, placed in dorsal supine position after cystoscopy and bilateral ureteric stents placement were applied by Dr. Gallardo. Following this, the patient was prepped and draped in normal sterile fashion. A midline subumbilical skin incision was made with a scalpel all the way down to the fascia, which was nicked in the midline, opened along the incision using the Bovie, midline was identified and peritoneum entered using stretch of two fingers, it was examined, opened in the midline vertically using Metzenbaum scissors. The patient was placed in Trendelenburg position and Millicent retractor was placed inside the abdomen. The mass was noted to be stuck to the pelvic, colon, cecum, pouch of Volodymyr, and the bladder. Dr. Gallardo dissected the mass intensively, recounts in his dictation. Following this, the infundibulopelvic ligament was identified on each side of the pelvic mass. Pus was noted to come from the posterior inferior part of the mass that was suctioned and sent to culture and sensitivity. The infundibulopelvic ligament was mobilized, cut, clamped with Zeppelin clamp on each side, cut, pedicle secured with transfixion suture of Vicryl 0. The mass was mobilized and dissected from the lateral pelvic sidewall medially and at the end, it was extremely attached to the posterior wall of the bladder and it was resected by Dr. Wallis and mobilized completely. Following this, the mass was removed and sent to pathology. Suction irrigation of peritoneal cavity with warm saline was performed. Rectus fascia approximated using PDS 0 continuous stitch. Exparel diluted with Marcaine and saline was injected below the rectus fascia laterally. Subcutaneous fat approximated using catgut 2-0 and skin was closed with matthew. The patient tolerated the procedure well. Lap, instrument, and needle count was correct x2 at the end of the procedure. Chelly Cervantes MD DD/TERRANCE /[id number]
[2019-02-12] MEDS: INSULIN LISPRO 100 UNIT/1 ML 3ML VIAL SQ SCH ×3 (11:30→21:00)
--- NOTE | 2019-02-12 11:30 | NUR ---
housing inspectors report from PACU. pt is s/p laparotomy and removal of mass on uterus. dressing is vertically placed from umbilicus to pubic area and is c/d/i , need to monitor for bleeding. warner in place with blood tinged output. R hand 20G with LR running, pt is AOx4 last vitals 129/78, HR 61, temp 98.4 F, O2 99% on RA, RR 15. pt last received morphine 4mg iv at 10:43 am.
[2019-02-12 13:36] VITALS: BP 132/75
[2019-02-12] MEDS ORDERED: ROCURONIUM BROMIDE 10 MG/ML 5ML VIAL ONE (13:51)
[2019-02-12] MEDS ORDERED: PROPOFOL IV EMULSION 10 MG/ML 20 ML VIAL ONE (13:51)
[2019-02-12] MEDS ORDERED: NEOSTIGMINE 5 MG/5ML SYR ONE (13:51)
[2019-02-12] MEDS ORDERED: GLYCOPYRROLATE INJ 1MG/ 5 ML SYR ONE (13:51)
[2019-02-12] MEDS ORDERED: SEVOFLURANE INHAL SOLN 250 ML PEN BTL ONE (13:51)
[2019-02-12] MEDS ORDERED: LIDOCAINE HCL 2% LOCAL INJ 5 ML SDV VIAL INJ ONE (13:51)
[2019-02-12] MEDS ORDERED: DEXAMETHASONE SOD PHOS INJ 4 MG/ML VIAL ONE (13:51)
[2019-02-12] MEDS ORDERED: ACETAMINOPHEN 1000 MG/100 ML IV ONE (13:51)
[2019-02-12] MEDS ORDERED: ONDANSETRON HCL INJ 2MG/ML 2ML 2 MG/ML VIAL ONE (13:51)
[2019-02-12 14:30] VITALS: BP 132/75
[2019-02-12] MEDS: HYDROCODONE/APAP 10MG-325MG TAB PO PRN (14:30)
[2019-02-12 14:38] VITALS: BP 132/75
--- NOTE | 2019-02-12 14:50 | NUR ---
Visit made by the Spiritual Care Department Pastoral Visitor, Susan Carolina. PV provided pastoral presence, prayer, hospitality, and supportive listening. Pastoral Visitor informed pt/family of the scope of [employer] and availability. [place] [facility] Spiritual Care Department O: [phone] Pager: [phone] ([phone] number calling from)
--- NOTE | 2019-02-12 16:10 | Operative Report ---
DATE OF PROCEDURE: 02/12/2019 SURGEON: Mi Gallardo MD SERVICE: Urology. PREOPERATIVE DIAGNOSES: 1. Pelvic mass. 2. Urinary tract infections. POSTOPERATIVE DIAGNOSES: 1. Pelvic mass. 2. Urinary tract infections. 3. Displaced base of the bladder and distal ureters. OPERATION PERFORMED: 1. Cystoscopy and bilateral retrograde pyelograms under fluoroscopic control. 2. Placement of ureteral catheters not related to the retrograde pyelogram. 3. Pelvic exam under anesthesia. 4. Interpretation of x-ray, radiologist not present. 5. Supervision of fluoroscopy, radiologist not present. REGULATORY AFFAIRS DIRECTOR: None. ANESTHESIA: General. CLINICAL INDICATION: This is a 38-year-old patient. She is brought for surgery of a pelvic mass by Dr. Cervantes. The patient will be evaluated first with cysto, retrograde and ureteral catheters placed. In the past, she did have a complicated hysterectomy. The procedure was discussed with the patient, potential benefit and complication discussed, explained and accepted. DESCRIPTION OF PROCEDURE AND FINDINGS: After appropriate level of anesthesia was achieved, the patient was placed in lithotomy position and prepped and draped in a sterile fashion. Urethra was inspected. It was unremarkable. There was a mass effect in the base of the bladder and trigone displacing ureteral orifice to both sides. No tumor was identified in the bladder or foreign bodies. Open-end catheters were then inserted bilaterally and retrograde pyelogram demonstrated normal upper collecting system bilaterally. Following this, a 5-South African open-end catheters were inserted bilaterally and advanced up to the kidney. Following this, a Quintero catheter was inserted 18-South African 10 mL and the ureteral catheters were inserted into the collecting bag. Following this, a pelvic exam was done under anesthesia revealing some fullness in the anterior aspect of the vagina towards the abdomen. The patient tolerated well this part of the procedure. Mi Gallardo MD AZ/MODL /[id number]
[2019-02-12] MEDS ORDERED: NON-FORMULARY MEDICATION ([Otezla] 30 MG) PO SCH (17:00)
[2019-02-12] MEDS: NON-FORMULARY MEDICATION ([Otezla] 30 MG) PO SCH (17:00)
[2019-02-12] MEDS: METFORMIN HCL 500 MG TAB PO SCH (17:24)
[2019-02-12] MEDS: MELOXICAM 7.5 MG TAB PO SCH (17:24)
[2019-02-12 18:59] VITALS: BP 121/62
[2019-02-12] MEDS ORDERED: MIDAZOLAM HCL 2 MG/2 ML VIAL ONE (19:59)
[2019-02-12] MEDS ORDERED: FENTANYL CITRATE/PF 100MCG/2 ML INJ ONE (19:59)
[2019-02-12 20:00] VITALS: BP 110/58
--- NOTE | 2019-02-12 20:00 | NUR ---
INITIAL ASSESSMENT COMPLETE, PT IN BED, CALL LIGHT IN REACH, IV INFUSING, BUSTILLOS DRAINING PABLO COLORED CLEAR URINE, MIDLINE INCISION WITH DRESSING INTACT, NO DRAINAGE NOTED, NO EDEMA, SCS'S ON PT, COMPRESSION STOCKINGS, NO DISTRESS OR PAIN NOTED, TOLD TO CALL FOR NEEDS, CONTINUE TO MONITOR CLOSELEY
[2019-02-13] VITALS (8 sets, daily range): BP systolic 97–127; BP diastolic 51–64
--- NOTE | 2019-02-13 00:35 | NUR ---
PT IN BED, NO DISTRESS NOTED, VS STABLE, CALL LIGHT IN REACH, CONTINUE TO MONITOR
[2019-02-13] MEDS: HYDROCODONE/APAP 10MG-325MG TAB PO PRN ×2 (03:25→17:04)
[2019-02-13 06:11] LABS: BASOPHILS % 0.1 % (0.0-1.0); EOSINOPHILS # (AUTO) 0.1 (0.0-0.4); EOSINOPHILS % 0.7 % (0.0-6.0); HEMATOCRIT 31.9 % (34.2-44.1); LYMPHOCYTES # (AUTO) 1.6 (1.0-3.2); LYMPHOCYTES % 18.5 % (18.0-39.1); MEAN CORPUSCULAR HEMOGLOBIN 24.3 pg (28-32); MEAN CORPUSCULAR HGB CONC 31.3 g/dL (31-35); MEAN CORPUSCULAR VOLUME 77.6 fL (81-99); MONOCYTES # (AUTO) 0.6 (0.2-0.8); MONOCYTES % 7.4 % (4.4-11.3); NEUTROPHILS # (AUTO) 6.3 (2.1-6.9); PLATELET COUNT 360 x10e3/uL (140-360); RED BLOOD COUNT 4.11 x10e6/uL (3.6-5.1); RED CELL DISTRIBUTION WIDTH 16.7 % (11.7-14.4)
[2019-02-13 06:28] LABS: ANION GAP 12.1 mmol/L (8-16); BLOOD UREA NITROGEN 8 mg/dL (7-26); BUN/CREATININE RATIO 10 (6-25); CALCIUM 8.7 mg/dL (8.4-10.2); CARBON DIOXIDE 25 mmol/L (22-29); CHLORIDE 105 mmol/L (98-107); CREATININE, SERUM 0.78 mg/dL (0.57-1.11); EST GLOMERULAR FILTRATION RATE > 60 ML/MIN (60-); GLUCOSE 97 mg/dL (74-118); POTASSIUM 4.1 mmol/L (3.5-5.1); SODIUM 138 mmol/L (136-145)
--- NOTE | 2019-02-13 07:00 | NUR ---
received pt lying in bed with eyes closed, resp even and unlabored. call light within reach.
[2019-02-13] MEDS: INSULIN LISPRO 100 UNIT/1 ML 3ML VIAL SQ SCH ×4 (07:30→20:41)
[2019-02-13] MEDS: LACTATED RINGER'S 1,000 ML IV SCH ×3 (08:00→23:54)
[2019-02-13] MEDS: MELOXICAM 7.5 MG TAB PO SCH ×2 (08:25→17:03)
[2019-02-13] MEDS: METFORMIN HCL 500 MG TAB PO SCH ×2 (08:25→17:03)
[2019-02-13] MEDS: NON-FORMULARY MEDICATION (Biotin 5,000 MCG) PO SCH (08:25)
[2019-02-13] MEDS: METRONIDAZOLE 500MG/NS 100ML 100 ML IV SCH ×2 (08:25→20:41)
[2019-02-13] MEDS: ASPIRIN 81 MG CHEW TAB PO SCH (08:25)
[2019-02-13] MEDS: FOLIC ACID 1 MG TAB PO SCH (08:25)
[2019-02-13] MEDS: NON-FORMULARY MEDICATION ([Otezla] 30 MG) PO SCH ×2 (08:25→17:00)
[2019-02-13] MEDS ORDERED: NON-FORMULARY MEDICATION (Biotin 5,000 MCG) PO SCH (09:00)
--- NOTE | 2019-02-13 15:47 | NUR ---
EDUCATED ABOUT IMM, SIGNED, FILED IN CHART, WITH COPY LEFT WITH FAMILY AT BEDSIDE.
[2019-02-13] MEDS: ACETAMINOPHEN 325 MG TAB PO PRN (23:38)
[2019-02-14] VITALS (7 sets, daily range): BP systolic 105–132; BP diastolic 56–74
--- NOTE | 2019-02-14 07:02 | NUR ---
received pt lying in bed with eyes closed, Resp even and unlabored. bed in low and locked position. call light within reach.
--- NOTE | 2019-02-14 07:04 | NUR ---
Report given to oncoming nurse,walking rounds made.pt resting in bed with no s/s of distress.
[2019-02-14] MEDS: INSULIN LISPRO 100 UNIT/1 ML 3ML VIAL SQ SCH ×4 (07:30→21:00)
[2019-02-14 07:47] LABS: BASOPHILS % 0.1 % (0.0-1.0); EOSINOPHILS # (AUTO) 0.3 (0.0-0.4); EOSINOPHILS % 3.2 % (0.0-6.0); HEMOGLOBIN 9.7 g/dL (12.0-16.0); LYMPHOCYTES # (AUTO) 1.2 (1.0-3.2); LYMPHOCYTES % 11.4 % (18.0-39.1); MEAN CORPUSCULAR HEMOGLOBIN 24.7 pg (28-32); MEAN CORPUSCULAR HGB CONC 32.3 g/dL (31-35); MEAN CORPUSCULAR VOLUME 76.3 fL (81-99); MONOCYTES # (AUTO) 0.9 (0.2-0.8); MONOCYTES % 8.5 % (4.4-11.3); NEUTROPHILS # (AUTO) 7.8 (2.1-6.9); NEUTROPHILS % 76.3 % (38.7-80.0); PLATELET COUNT 336 x10e3/uL (140-360); RED BLOOD COUNT 3.93 x10e6/uL (3.6-5.1); RED CELL DISTRIBUTION WIDTH 16.6 % (11.7-14.4)
[2019-02-14 08:12] LABS: ANION GAP 10.4 mmol/L (8-16); BLOOD UREA NITROGEN 5 mg/dL (7-26); BUN/CREATININE RATIO 8 (6-25); CALCIUM 8.7 mg/dL (8.4-10.2); CARBON DIOXIDE 24 mmol/L (22-29); CHLORIDE 105 mmol/L (98-107); CREATININE, SERUM 0.64 mg/dL (0.57-1.11); EST GLOMERULAR FILTRATION RATE > 60 ML/MIN (60-); GLUCOSE 102 mg/dL (74-118); POTASSIUM 3.4 mmol/L (3.5-5.1); SODIUM 136 mmol/L (136-145)
[2019-02-14] MEDS: METFORMIN HCL 500 MG TAB PO SCH ×2 (08:19→16:34)
[2019-02-14] MEDS: MELOXICAM 7.5 MG TAB PO SCH ×2 (08:19→16:30)
[2019-02-14] MEDS: ASPIRIN 81 MG CHEW TAB PO SCH (08:19)
[2019-02-14] MEDS: METRONIDAZOLE 500MG/NS 100ML 100 ML IV SCH (08:19)
[2019-02-14] MEDS: LACTATED RINGER'S 1,000 ML IV SCH ×3 (08:19→23:06)
[2019-02-14] MEDS: FOLIC ACID 1 MG TAB PO SCH (08:19)
[2019-02-14] MEDS: NON-FORMULARY MEDICATION (Biotin 5,000 MCG) PO SCH (08:20)
[2019-02-14] MEDS: NON-FORMULARY MEDICATION ([Otezla] 30 MG) PO SCH ×2 (08:20→16:30)
--- NOTE | 2019-02-14 10:45 | NUR ---
Dr. Ames RELAY TECHNICIAN arrived to see patient and made aware of patient having fever overnight, new orders received.
[2019-02-14] MEDS ORDERED: CIPROFLOXACIN 400 MG/D5W 200ML 200 ML IV SCH (11:00)
[2019-02-14] MEDS: LEVOFLOXACIN 500MG/D5W 100ML 100 ML IV SCH (11:24)
[2019-02-14] MEDS: ACETAMINOPHEN 325 MG TAB PO PRN (16:30)
--- NOTE | 2019-02-14 19:10 | NUR ---
report given to oncoming nurse, bedside rounds done.
[2019-02-14] MEDS: HYDROCODONE/APAP 10MG-325MG TAB PO PRN (23:32)
[2019-02-15 00:44] VITALS: BP 127/74
[2019-02-15 04:37] VITALS: BP 120/68
--- NOTE | 2019-02-15 06:59 | NUR ---
REPORT GIVEN TO ONCOMING NURSE,WALKING ROUNDS DONE.PT RESTING IN BED WITH NO S/S OF DISTRESS.
--- NOTE | 2019-02-15 07:00 | NUR ---
received am report from RN. morning rounds completed, pt is sleeping in bed with no s/s of distress.
[2019-02-15] MEDS: INSULIN LISPRO 100 UNIT/1 ML 3ML VIAL SQ SCH ×3 (07:30→16:25)
[2019-02-15] MEDS: LACTATED RINGER'S 1,000 ML IV SCH (07:41)
[2019-02-15] MEDS: ASPIRIN 81 MG CHEW TAB PO SCH (07:56)
[2019-02-15] MEDS: FOLIC ACID 1 MG TAB PO SCH (07:56)
[2019-02-15] MEDS: NON-FORMULARY MEDICATION (Biotin 5,000 MCG) PO SCH (07:56)
[2019-02-15] MEDS: MELOXICAM 7.5 MG TAB PO SCH (07:56)
[2019-02-15] MEDS: METFORMIN HCL 500 MG TAB PO SCH (07:56)
[2019-02-15] MEDS: NON-FORMULARY MEDICATION ([Otezla] 30 MG) PO SCH (07:56)
[2019-02-15 07:57] VITALS: BP 122/68
--- NOTE | 2019-02-15 08:52 | NUR ---
CM SPOKE TO BEDSIDE RN TRUPTI REGARDING PATIENT PLAN OF CARE AND DISCHARGE PLAN. PATIENT POST PROCEDURES THAT TOOK PLACE 02/12. 02/14 PATIENT STARTED SPIKING A FEVER OF 101.4 AND IV ABX CHANGED. PATIENT CLEARED BY DR. CROFT FOR DISCHARGE AND FOLLOW UP OUTPATIENT. BEDSIDE RN CALLING MD FOR UPDATED PLAN OF CARE AND ANTICIPATED DISCHARGE DATE.. TRUPTI TO GET BACK TO CM WITH MD DISCHARGE PLAN AND PLAN OF CARE.
[2019-02-15 09:23] VITALS: BP 122/68
[2019-02-15 12:00] VITALS: BP 126/65
[2019-02-15] MEDS: LEVOFLOXACIN 500MG/D5W 100ML 100 ML IV SCH (12:18)
--- NOTE | 2019-02-15 13:16 | NUR ---
EDUCATED ABOUT IMM, SIGNED, FILED IN CHART, WITH COPY LEFT WITH FAMILY AT BEDSIDE.
[2019-02-15 16:40] VITALS: BP 131/73
--- NOTE | 2019-03-12 12:50 | Discharge Summary ---
DIAGNOSES: 1. Laparotomy. 2. Excision of pelvic mass. HOSPITAL COURSE: The patient underwent above-mentioned procedure with the teamwork of General Surgery and Urology and myself. She made unremarkable postoperative recovery. She was afebrile, tolerating p.o., had a bowel movement. She was discharged home to be seen in the office in 2 weeks. She was given [place] for pain management and all her questions were answered before discharge. Chelly Cervantes MD DD/TERRANCE /[id number]
== END 2019-02-15 18:11 | disposition home or self-care (01) | DRG 337 ==
LOC: OR 05:44 → PACU V 07:58 → MED/SURG 11:46
PROVIDERS: ADMIT Obstetrics & Gynecology; ATTEND Obstetrics & Gynecology
PROC: 0DNN0ZZ Release Sigmoid Colon, Open Approach (ICD-10-PCS; 2019-02-12)
PROC: 0TNB0ZZ Release Bladder, Open Approach (ICD-10-PCS; 2019-02-12)
PROC: 0W9H0ZZ Drainage of Retroperitoneum, Open Approach (ICD-10-PCS; 2019-02-12)
PROC: 0T788DZ Dilation of Bilateral Ureters with Intraluminal Device, Via Natural or Artificial Opening Endoscopic (ICD-10-PCS; 2019-02-12)
PROC: BT141ZZ Fluoroscopy of Kidneys, Ureters and Bladder using Low Osmolar Contrast (ICD-10-PCS; 2019-02-12)
PROC: 0WBH0ZZ Excision of Retroperitoneum, Open Approach (ICD-10-PCS; principal; 2019-02-12 07:30)
PROC: 0DN80ZZ Release Small Intestine, Open Approach (ICD-10-PCS; 2019-02-12 07:30)
PROC: 0UT20ZZ Resection of Bilateral Ovaries, Open Approach (ICD-10-PCS; 2019-02-12 07:30)
DX: R19.09 Other intra-abdominal and pelvic swelling, mass and lump (principal); N73.5 Female pelvic peritonitis, unspecified; N73.6 Female pelvic peritoneal adhesions (postinfective); E66.9 Obesity, unspecified; Z68.31 Body mass index [BMI] 31.0-31.9, adult; D64.9 Anemia, unspecified; M32.9 Systemic lupus erythematosus, unspecified; N39.41 Urge incontinence; E11.9 Type 2 diabetes mellitus without complications; Z79.84 Long term (current) use of oral hypoglycemic drugs; Z79.82 Long term (current) use of aspirin; Z88.0 Allergy status to penicillin; Z91.041 Radiographic dye allergy status
CPT/HCPCS: 36415; 74420; 80048; 80053; 82948; 84702; 85025; 86850; 86900; 87040; 87071; 87075; 87186; 87205; 88305; 88307; 93005; C1758; J1100; J1885; J1956; J2001; J2250; J2270; J2405; J3010; J7121

== ENCOUNTER 2023-05-29 08:19 | Inpatient (IN) | payer MEDICARE ==
[2023-05-25 13:25] LABS: BASOPHILS % 0.1 % (0.0-1.0); HEMATOCRIT 37.7 % (34.2-44.1); HEMOGLOBIN 12.3 g/dL (12.0-16.0); LYMPHOCYTES # (AUTO) 1.1 (1.0-3.2); LYMPHOCYTES % 7.3 % (18.0-39.1); MEAN CORPUSCULAR HEMOGLOBIN 28.1 pg (28-32); MEAN CORPUSCULAR HGB CONC 32.6 g/dL (31-35); MEAN CORPUSCULAR VOLUME 86.1 fL (81-99); MONOCYTES # (AUTO) 0.4 (0.2-0.8); MONOCYTES % 2.6 % (4.4-11.3); NEUTROPHILS # (AUTO) 13.2 (2.1-6.9); NEUTROPHILS % 89.7 % (38.7-80.0); PLATELET COUNT 322 x10e3/uL (140-360); RED BLOOD COUNT 4.38 x10e6/uL (3.6-5.1); RED CELL DISTRIBUTION WIDTH 12.8 % (11.7-14.4); WHITE BLOOD COUNT 14.74 x10e3/uL (4.8-10.8)
[2023-05-25 13:42] LABS: ANION GAP 12.8 mmol/L (8-16); CALCIUM 9.6 mg/dL (8.4-10.2); CREATININE, SERUM 0.76 mg/dL (0.57-1.11); POTASSIUM 3.8 mmol/L (3.5-5.1)
[~2023-05-29] VITALS: Ht 162.6 cm; Wt 83.0 kg
[~2023-05-29 08:19] MED LIST changes: -PREDNISONE5 G1; +PREDNISONE5 G1 PO
[2023-05-29] MEDS ORDERED: LACTATED RINGER'S 1,000 ML ONE (08:44)
[2023-05-29] MEDS ORDERED: DEXTROSE 5% 250ML 250 ML IV ONE (08:48)
[2023-05-29] MEDS ORDERED: SEVOFLURANE INHAL SOLN 250 ML PEN BTL ONE (08:56)
[2023-05-29] MEDS ORDERED: PROPOFOL IV EMULSION 10 MG/ML 20 ML VIAL ONE (08:56)
[2023-05-29] MEDS ORDERED: ONDANSETRON HCL INJ 2MG/ML 2ML 2 MG/ML VIAL ONE (08:56)
[2023-05-29] MEDS ORDERED: DEXAMETHASONE SOD PHOS INJ 4 MG/ML SDV ONE (08:56)
[2023-05-29] MEDS ORDERED: ROCURONIUM BROMIDE 10 MG/ML 5ML VIAL IV ONE (08:56)
[2023-05-29] MEDS ORDERED: NEOSTIGMINE 1 MG/ML 10ML VIAL ONE (08:56)
[2023-05-29] MEDS ORDERED: LIDOCAINE HCL 2% LOCAL INJ 5 ML SDV VIAL INJ ONE (08:56)
[2023-05-29] MEDS ORDERED: GLYCOPYRROLATE INJ 0.2 MG/ML VIAL ONE (08:56)
[2023-05-29] MEDS ORDERED: BUPIVACAINE 0.25% 30ML SDV ONE (10:03)
[2023-05-29] MEDS ORDERED: LIDOCAINE 2%/ EPINEPHRINE 20ML MDV ONE (10:03)
[2023-05-29] MEDS ORDERED: ROPIVACAINE 246.25 MG, EPINEPHRINE HCL 1:1000 1ML 0.5 MG, CLONIDINE HCL 0.08 MG, KETORO... INJ ONE ×5 (11:15)
[2023-05-29] MEDS ORDERED: FENTANYL CITRATE/PF 100MCG/2 ML INJ ONE (11:47)
[2023-05-29] MEDS ORDERED: NALOXONE HCL INJ 0.4 MG/ML AMP IV PRN (14:15)
[2023-05-29] MEDS ORDERED: ACETAMINOPHEN 1000 MG/100 ML IV PRN (14:15)
[2023-05-29] MEDS ORDERED: ONDANSETRON HCL INJ 2MG/ML 2ML 2 MG/ML VIAL IV PRN (14:15)
[2023-05-29] MEDS: HYDROMORPHONE 0.2MG/ML-SOD CHL 30ML PCA SYRINGE IV PRN ×2 (14:27→21:38)
[2023-05-29 15:00] VITALS: BP_SYST 117; BP_SYST 140; BP_DIAS 71; BP_DIAS 79; PULSE 58; PULSE 61; RESP 14; RESP 15; TEMP 97.6; TEMP 98.1; O2SAT 97; O2SAT 99
[2023-05-29 16:00] VITALS: BP 125/80; PULSE 65; RESP 18; TEMP 98.4; O2SAT 99
[2023-05-29] MEDS ORDERED: LEVOFLOXACIN 500MG/D5W 100ML 100 ML IV ONE (16:00)
[2023-05-29] MEDS: SODIUM CHLORIDE 0.9% 1000ML 1,000 ML IV SCH (16:45)
[2023-05-29] MEDS: INSULIN REGULAR, HUMAN 100 UNIT/1 ML SQ SCH ×2 (16:58→22:44)
[2023-05-29 20:50] VITALS: BP 112/70; PULSE 66; RESP 21; TEMP 98.4; O2SAT 98
[2023-05-29 21:19] VITALS: BP 112/70; PULSE 66; RESP 21; TEMP 98.4; O2SAT 98
[2023-05-30] VITALS (7 sets, daily range): BP systolic 108–144; BP diastolic 56–79; PULSE 57–89; RESP 17–21; TEMP 98.6–99.2; O2SAT 70–98
[2023-05-30] MEDS: SODIUM CHLORIDE 0.9% 1000ML 1,000 ML IV SCH ×3 (01:34→20:31)
[2023-05-30] MEDS: INSULIN REGULAR, HUMAN 100 UNIT/1 ML SQ SCH ×3 (05:10→18:00)
[2023-05-30 05:40] LABS: BASOPHILS % 0.1 % (0.0-1.0); HEMATOCRIT 34.1 % (34.2-44.1); HEMOGLOBIN 11.3 g/dL (12.0-16.0); LYMPHOCYTES % 23.8 % (18.0-39.1); MEAN CORPUSCULAR HEMOGLOBIN 28.3 pg (28-32); MEAN CORPUSCULAR HGB CONC 33.1 g/dL (31-35); MEAN CORPUSCULAR VOLUME 85.5 fL (81-99); MONOCYTES % 7.8 % (4.4-11.3); NEUTROPHILS # (AUTO) 8.6 (2.1-6.9); NEUTROPHILS % 68.1 % (38.7-80.0); PLATELET COUNT 318 x10e3/uL (140-360); RED BLOOD COUNT 3.99 x10e6/uL (3.6-5.1); RED CELL DISTRIBUTION WIDTH 12.5 % (11.7-14.4); WHITE BLOOD COUNT 12.66 x10e3/uL (4.8-10.8)
[2023-05-30 06:15] LABS: ANION GAP 12.9 mmol/L (8-16); CREATININE, SERUM 0.73 mg/dL (0.57-1.11); POTASSIUM 3.9 mmol/L (3.5-5.1)
[2023-05-30] MEDS: HYDROMORPHONE 0.2MG/ML-SOD CHL 30ML PCA SYRINGE IV PRN (08:37)
[2023-05-31] VITALS (9 sets, daily range): BP systolic 141–166; BP diastolic 72–91; PULSE 76–98; RESP 16–21; TEMP 98–100.2; O2SAT 92–96
[2023-05-31] MEDS: ACETAMINOPHEN 325 MG TAB PO PRN ×2 (00:39→05:07)
[2023-05-31] MEDS: INSULIN REGULAR, HUMAN 100 UNIT/1 ML SQ SCH ×4 (05:04→18:00)
[2023-05-31] MEDS: SODIUM CHLORIDE 0.9% 1000ML 1,000 ML IV SCH ×2 (05:07→16:55)
[2023-05-31 05:39] LABS: BASOPHILS % 0.2 % (0.0-1.0); HEMATOCRIT 36.3 % (34.2-44.1); HEMOGLOBIN 12.2 g/dL (12.0-16.0); LYMPHOCYTES # (AUTO) 1.5 (1.0-3.2); MEAN CORPUSCULAR HEMOGLOBIN 28.3 pg (28-32); MEAN CORPUSCULAR HGB CONC 33.6 g/dL (31-35); MEAN CORPUSCULAR VOLUME 84.2 fL (81-99); MONOCYTES # (AUTO) 0.8 (0.2-0.8); MONOCYTES % 7.1 % (4.4-11.3); NEUTROPHILS # (AUTO) 9.4 (2.1-6.9); NEUTROPHILS % 79.5 % (38.7-80.0); PLATELET COUNT 311 x10e3/uL (140-360); RED BLOOD COUNT 4.31 x10e6/uL (3.6-5.1); RED CELL DISTRIBUTION WIDTH 12.5 % (11.7-14.4); WHITE BLOOD COUNT 11.75 x10e3/uL (4.8-10.8)
[2023-05-31 06:04] LABS: ANION GAP 13.8 mmol/L (8-16); CALCIUM 9.2 mg/dL (8.4-10.2); CREATININE, SERUM 0.65 mg/dL (0.57-1.11); POTASSIUM 3.8 mmol/L (3.5-5.1)
[2023-05-31] MEDS ORDERED: ONDANSETRON HCL 4 MG ORAL DISINTEGRATING TAB PO PRN (09:30)
[2023-05-31] MEDS ORDERED: HYDROCODONE/APAP 7.5MG-325MG 1 EA TAB PO PRN (10:30)
[2023-05-31] MEDS ORDERED: BISACODYL 10 MG SUPP PR ONE (11:00)
[2023-05-31] MEDS: HYDROCODONE/APAP 7.5MG-325MG 1 EA TAB PO PRN ×2 (11:01→16:54)
[2023-05-31] MEDS: HYDROMORPHONE 1MG/1ML INJ IV PRN (19:55)
[2023-05-31] MEDS: BISACODYL 10 MG SUPP PR SCH (22:13)
[2023-06-01] VITALS: BP 138/88; PULSE 99; RESP 20; TEMP 98.7; O2SAT 93
[2023-06-01] MEDS: HYDROMORPHONE 1MG/1ML INJ IV PRN ×5 (00:05→17:34)
[2023-06-01] MEDS: SODIUM CHLORIDE 0.9% 1000ML 1,000 ML IV SCH (03:26)
[2023-06-01 05:09] LABS: BASOPHILS % 0.2 % (0.0-1.0); HEMATOCRIT 35.9 % (34.2-44.1); LYMPHOCYTES # (AUTO) 1.3 (1.0-3.2); LYMPHOCYTES % 10.6 % (18.0-39.1); MEAN CORPUSCULAR HGB CONC 33.4 g/dL (31-35); MEAN CORPUSCULAR VOLUME 83.7 fL (81-99); MONOCYTES # (AUTO) 0.6 (0.2-0.8); MONOCYTES % 4.8 % (4.4-11.3); NEUTROPHILS % 84.1 % (38.7-80.0); PLATELET COUNT 276 x10e3/uL (140-360); RED BLOOD COUNT 4.29 x10e6/uL (3.6-5.1); RED CELL DISTRIBUTION WIDTH 12.5 % (11.7-14.4)
[2023-06-01] MEDS ORDERED: INSULIN REGULAR, HUMAN 100 UNIT/1 ML SQ SCH (05:15)
[2023-06-01 05:31] LABS: ANION GAP 13.5 mmol/L (8-16); CALCIUM 9.3 mg/dL (8.4-10.2); CREATININE, SERUM 0.59 mg/dL (0.57-1.11); POTASSIUM 3.5 mmol/L (3.5-5.1)
[2023-06-01 05:53] VITALS: BP 138/74; PULSE 94; RESP 19; TEMP 98.1; O2SAT 100
[2023-06-01] MEDS: HYDROCODONE/APAP 7.5MG-325MG 1 EA TAB PO PRN (07:05)
[2023-06-01] MEDS: INSULIN REGULAR, HUMAN 100 UNIT/1 ML SQ SCH ×3 (07:30→16:30)
[2023-06-01] MEDS: BISACODYL 10 MG SUPP PR SCH (09:04)
[2023-06-01 09:44] VITALS: BP 144/82; PULSE 97; RESP 18; TEMP 98.9; O2SAT 98
[2023-06-01 10:41] VITALS: PULSE 92; RESP 18; O2SAT 92
[2023-06-01 13:17] VITALS: BP 138/86; PULSE 94; RESP 16; TEMP 98.6; O2SAT 95
[2023-06-01 16:05] VITALS: BP 146/88; PULSE 91; RESP 18; TEMP 99.4; O2SAT 96
[2023-06-02] MEDS ORDERED: PANTOPRAZOLE SOD 40 MG TABEC PO SCH (07:30)
== END 2023-06-01 18:06 | disposition home or self-care (01) | DRG 355 ==
LOC: OR 08:19 → PACU V 14:04 → MED/SURG 15:35
PROVIDERS: ADMIT Surgery; ATTEND Surgery
PROC: 0WUF0JZ Supplement Abdominal Wall with Synthetic Substitute, Open Approach (ICD-10-PCS; principal; 2023-05-29 10:43)
DX: K43.6 Other and unspecified ventral hernia with obstruction, without gangrene (principal); E11.9 Type 2 diabetes mellitus without complications; M19.90 Unspecified osteoarthritis, unspecified site
CPT/HCPCS: 36415; 80048; 82948; 85025; 88302; 93005; 94799; C1781; J0171; J0690; J1100; J1170; J1885; J1956; J2001; J2405; J2710; J2795; J7030; J7070